=== PATIENT | female | born 1995 | race Caucasian/White ===

== ENCOUNTER 2019-12-18 01:21 | Emergency (ER) | payer BC, OTHER ==
[~2019-12-18] VITALS: Ht 175.3 cm; Wt 65.5 kg
[2019-12-18] MEDS ORDERED: HYDR1SYP3 PO (01:29)
[2019-12-18] MEDS ORDERED: CYTO5TAB8 PO (01:29)
[2019-12-18] MEDS ORDERED: PANT40TA3 PO (01:29)
[2019-12-18] MEDS ORDERED: SYNT100T PO (01:29)
[2019-12-18] MEDS ORDERED: ADVA115A INH (01:30)
[2019-12-18] MEDS ORDERED: METAL LOCK LOOP XX ONE (02:46)
[2019-12-18 05:01] LABS: BASO % 0.4 % (0.0-1.0); EOS # 0.2 10^3/uL (0.0-0.5); HEMATOCRIT 37.1 % (36.0-47.0); HEMOGLOBIN 12.5 g/dl (12.0-15.5); LYMPH # 2.2 10^3/uL (1.5-5.0); LYMPH % 27.6 % (24.0-44.0); MEAN CORPUSCULAR HEMOGLOBIN 30.1 pg (27.0-33.0); MEAN CORPUSCULAR HGB CONC 33.7 g/dl (32.0-36.5); MEAN CORPUSCULAR VOLUME 89.4 fl (80.0-96.0); MONO # 0.8 10^3/uL (0.0-0.8); MONO % 10.2 % (0.0-5.0); NEUTROPHILS # 4.8 10^3/uL (1.5-8.5); NEUTROPHILS % 59.3 % (36.0-66.0); PLATELET COUNT, AUTOMATED 201 10^3/uL (150-450); RED BLOOD COUNT 4.15 10^6/uL (4.00-5.40); WHITE BLOOD COUNT 8.1 10^3/uL (4.0-10.0)
[2019-12-18 05:28] LABS: HCG, SERUM QUALITATIVE NEGATIVE (NEGATIVE)
[2019-12-18 05:36] LABS: BLOOD UREA NITROGEN 12 MG/DL (7-18); CALCIUM LEVEL 8.5 MG/DL (8.5-10.1); CARBON DIOXIDE LEVEL 26 MEQ/L (21-32); CHLORIDE LEVEL 107 MEQ/L (98-107); CREATININE FOR GFR 0.62 MG/DL (0.55-1.30); FREE THYROXINE INDEX 2.9 % (1.3-4.8); GLOMERULAR FILTRATION RATE > 60.0 (>60); GLUCOSE, FASTING 92 MG/DL (70-100); POTASSIUM SERUM 3.8 MEQ/L (3.5-5.1); SODIUM LEVEL 140 MEQ/L (136-145); T UPTAKE 30 % (30-39); THYROXINE (T4) 9.5 UG/DL (4.5-12.0)
[2019-12-18 05:45] VITALS: BP 114/73
--- NOTE | 2019-12-18 06:04 | ECGEPIP ---
[facility] - ED Test Date: 2019-12-18 Pat Name: ANGELITA RUANO Department: Room: - Gender: Female Service Girl: shubham : 1995 Requested By: CORNEL RIDDLE Order Number: [id number] Reading MD: Dusty Rosas Measurements Intervals [place] Rate: 88 P: 73 [place]: 153 QRS: -77 QRSD: 81 T: 20 QT: 346 QTc: 419 Interpretive Statements SINUS RHYTHM WITH SINUS ARRHYTHMIA LEFT AXIS DEVIATION POSSIBLE RIGHT VENTRICULAR CONDUCTION DELAY NO PRIORS FOR COMPARISON Electronically Signed on 12-18-2019 6:03:53 EST by Dusty Rosas
== END 2019-12-18 06:00 | disposition home or self-care (01) ==
LOC: M ED 01:21
DX: R00.2 Palpitations (principal); E03.9 Hypothyroidism, unspecified; Z79.899 Other long term (current) drug therapy; Z85.850 Personal history of malignant neoplasm of thyroid